=== PATIENT | female | born 1960 | race Caucasian/White ===

== ENCOUNTER 2017-02-11 09:25 | Emergency (ER) | payer OTHER ==
[~2017-02-11] VITALS: Ht 177.8 cm; Wt 93.2 kg
[2017-02-11 09:34] VITALS: BP 141/67; PULSE 72; RESP 16; TEMP 98; O2SAT 97
[2017-02-11 09:39] VITALS: BP 141/67; PULSE 70; RESP 15; TEMP 98; O2SAT 97
[2017-02-11] MEDS ORDERED: ACETAMINOPHEN 325 MG TAB PO ONE (11:30)
--- NOTE | 2017-02-11 11:46 | PD ---
HPI Chief Complaint: Injury Time Seen by Provider: 11:00 Travel History International Travel<30 days: No Contact w/Intl Traveler<30days: No History of Present Illness HPI This is a 56-year-old female who presents via EMS for evaluation after mechanical fall. Prior to arrival the patient was at work when she slipped and fell, twisting her right knee. She struck the right side of her head against a bookcase. She is complaining of a right-sided throbbing headache which is constant as well as generalized right knee pain which is throbbing. No alleviating factors. She has not attempted to ambulate. She was placed in a splint by EMS. She denies any neck or back pain, chest pain or shortness of breath, confusion or amnesia, nausea or vomiting, blurred vision. She has no other complaints at this time. [facility] Past Medical History Medical History: Denies Significant Hx ?: Not Past Surgical History Cholecystectomy: Yes Hysterectomy: Yes Tonsillectomy: Yes Social History Alcohol Use: No Tobacco Use: No Substance Use: No Allergies-Medications (Allergen,Severity, Reaction): Coded Allergies: Penicillins (Verified Allergy, Severe, Anaphylaxis, 02/11/17) cephalexin (Verified Allergy, Severe, Anaphylaxis, 02/11/17) epinephrine (Verified Allergy, Intermediate, Numbness, 02/11/17) LIPS GO NUMB hydrocortisone (Verified Allergy, Intermediate, Nausea/Vomiting, 02/11/17) Reported Meds & Prescriptions Reported Meds & Active Scripts Active Zofran (Ondansetron HCl) 4 Mg Tab 4 Mg PO Q6HR PRN Tylenol-Codeine #3 (Acetaminophen-Codeine) 300-30 mg Tab 1 Tab PO Q4H PRN Review of Systems Except as stated in HPI: all other systems reviewed are Neg Physical Exam Narrative GENERAL: Well-developed well-nourished female in no acute distress SKIN: Warm and dry. HEAD: Atraumatic. Normocephalic. EYES: Pupils equal and round. No scleral icterus. No injection or drainage. ENT: No nasal bleeding or discharge. Mucous membranes pink and moist. NECK: Trachea midline. No JVD. CARDIOVASCULAR: Regular rate and rhythm. No murmur appreciated. RESPIRATORY: No accessory muscle use. Clear to auscultation. Breath sounds equal bilaterally. GASTROINTESTINAL: Abdomen soft, non-tender, nondistended. Hepatic and splenic margins not palpable. MUSCULOSKELETAL: Generalized right knee soft tissue swelling is noted. There is tenderness to palpation of the right knee joint anteriorly. Unable to perform flexion and extension secondary to pain. There is no tenderness to palpation to the right thigh, calf, ankle or foot. 2+ dorsalis pedis pulse. Distal sensation is intact. There is no tenderness to palpation along the cervical thoracic or lumbar midline spine. NEUROLOGICAL: Awake and alert. No obvious cranial nerve deficits. Motor grossly within normal limits. Normal speech. PSYCHIATRIC: Appropriate mood and affect; insight and judgment normal. Data Data Last Documented VS Vital Signs Date Time Temp Pulse Resp B/P (MAP) Pulse Ox O2 Delivery O2 Flow Rate FiO2 02/11/17 09:39 98.0 70 15 141/67 (91) [address] Brain W/O Iv Contrast(Rout) (02/11/17 ) Ice/Cold Pack (02/11/17 11:12) Acetaminophen (Tylenol) (02/11/17 11:30) Knee, Ltd (1 Or 2vws) (02/11/17 ) Crutches (02/11/17 12:08) Splint Or Brace Apply/Monitor (02/11/17 12:08) MDM Medical Decision Making Medical Screen Exam Complete: Yes Emergency Medical Condition: Yes Medical Record Reviewed: Yes Differential Diagnosis Knee fracture, ligamentous disruption, meniscal disruption, dislocation, contusion, bursitis Narrative Course CONCLUSION: Horizontal patella fracture with large joint effusion. CT was read brain reveals no acute abnormalities. I discussed with Dr. Soto the orthopedist automation test engineer who recommends knee immobilizer, crutches, outpatient follow-up in his office in 4 days on Saturday. Discussed these recommendations with the patient. She is stable for discharge. Diagnosis Primary Impression: Right patella fracture Qualified Codes: S82.001A - Unspecified fracture of right patella, initial encounter for closed fracture Referrals: Curry Soto MD Additional Instructions: Follow-up with orthopedist Dr. Soto in 4 days on February 15, call his office to make an appointment. Splint, crutches provided ice pack several times a day 15-20 minutes at a time. Elevate. Medication as needed. Return for any emergent medical conditions. Scripts Ondansetron (Zofran) 4 Mg Tab 4 MG PO Q6HR Y for NAUSEA OR VOMITING, #20 TAB 0 Refills Prov: Dada Oropeza MD 02/11/17 Acetaminophen-Codeine (Tylenol-Codeine #3) 300-30 mg Tab 1 TAB PO Q4H Y for PAIN, #20 TAB 0 Refills Prov: Dada Oropeza MD 02/11/17 Disposition: 01 DISCHARGE HOME Condition: Stable Francis Borjas Feb 11, 2017 11:46
--- NOTE | 2017-02-11 11:48 | RADRPT ---
EXAM DATE/TIME: 02/11/2017 11:34 [facility] COMPARISON: No previous studies available for comparison. INDICATIONS : Right knee pain, slipped and fell this morning. MEDICAL HISTORY : hx of 4 knee surgeries, SURGICAL HISTORY : surgery with hardware 2000 ENCOUNTER: Initial ACUITY: 1 day PAIN SCORE: 10/10 LOCATION: Right knee FINDINGS: There is patella fracture evident. There is large joint effusion present. Distal femur and proximal tibia are intact. Previous surgical repair proximal tibia is noted. CONCLUSION: Horizontal patella fracture with large joint effusion. Stef Aiken MD FACR on February 11, 2017 at 11:46 Board Certified Radiologist. This report was verified electronically.
--- NOTE | 2017-02-11 11:54 | RADRPT ---
EXAM DATE/TIME: 02/11/2017 11:34 [facility] COMPARISON: No previous studies available for comparison. INDICATIONS : Fall hit head on ground. RADIATION DOSE: 56.40 CTDIvol (mGy) MEDICAL HISTORY : None SURGICAL HISTORY : Cholecystectomy. Hysterectomy. ENCOUNTER: Initial ACUITY: 1 day PAIN SCALE: 4/10 LOCATION: cranial TECHNIQUE: Multiple contiguous axial images were obtained of the head. Using automated exposure control and adj ustment of the mA and/or kV according to patient size, radiation dose was kept as low as reasonably a chievable to obtain optimal diagnostic quality images. DICOM format image data is available electro nically for review and comparison. FINDINGS: CEREBRUM: The ventricles are normal for age. No evidence of midline shift, mass lesion, hemorrhage or acute in farction. No extra-axial fluid collections are seen. POSTERIOR FOSSA: The cerebellum and brainstem are intact. The 4th ventricle is midline. The cerebellopontine angle i s unremarkable. EXTRACRANIAL: The visualized portion of the orbits is intact. SKULL: The calvaria is intact. No evidence of skull fracture. CONCLUSION: Negative for acute process. Stef Aiken MD FACR on February 11, 2017 at 11:51 Board Certified Radiologist. This report was verified electronically.
[2017-02-11] MEDS ORDERED: TYLETAB34 PO (12:16)
[2017-02-11] MEDS ORDERED: ZOFR4TAB PO (12:16)
== END 2017-02-11 15:45 | disposition home or self-care (01) ==
LOC: NEPE 09:25
DX: S82.001A Unspecified fracture of right patella, initial encounter for closed fracture (principal); R51 Headache; W01.190A Fall on same level from slipping, tripping and stumbling with subsequent striking against furniture, initial encounter; Y99.0 Civilian activity done for income or pay
CPT/HCPCS: 70450; 73560; 99284; E0113; L1830